=== PATIENT | female | born 1995 | race Two or more races ===

== ENCOUNTER 2020-07-27 14:41 | Outpatient (CLI) | payer MEDICAID ==
--- NOTE | 2020-07-27 18:44 | Ultrasound Report ---
PROCEDURE: OB First Trimester INDICATIONS: pREG TEST OUTSIDE/PRIOR DATING DATA: Last menstrual period (LMP): 05/07/2020. LMP-based estimated date of delivery (RUBIO): 02/11/2021. First dating scan (date and location): Today. Estimated date of delivery (RUBIO) from first dating scan: 02/10/2021. TECHNIQUE: Real-time scanning was performed of the fetus and maternal pelvic organs, with image documentation. COMPARISON: None FINDINGS: Embryo: There is a single living intrauterine with heart rate of 169 bpm. [place] rump length m easures 5.0 cm corresponding to 11 weeks 5 days. No evidence of perigestational hemorrhage. Yolk sac is identified. Measurement variability in dating: +/- 4 weeks by LMP, +/- 7 days by mean sac diameter (use before 6 weeks gestation if crown-rump length not able to be measured), +/- 5 days by crown-rump length (6-12 weeks gestation). Maternal organs: Benign-appearing likely corpus luteal cyst is noted within the left ovary measuring 1.6 x 1.3 x 1.7 cm. IMPRESSION: Single living intrauterine with heart rate of 169 bpm corresponding to 11 weeks 5 day s by crown-rump length. This corresponds to RUBIO of 02/10/2021. Reviewed by: Bill Martinez DO on 07/27/2020 5:43 PM HILARY Approved by: Bill Martinez DO on 07/27/2020 5:43 PM HILARY Station ID: [id number]
== END 2020-07-27 14:42 | disposition home or self-care (01) ==
LOC: DI 14:41
DX: Z32.01 Encounter for pregnancy test, result positive (principal)

== ENCOUNTER 2020-07-28 11:22 | Outpatient (CLI) | payer MEDICAID ==
[2020-07-28 11:55] LABS: BASOPHILS % (AUTO) 0.2 %; EOSINOPHILS # (AUTO) 0.1 10^3/uL (0.0-0.7); EOSINOPHILS % (AUTO) 1.3 %; HCT - HEMATOCRIT 37.7 % (37.0-47.0); HGB - HEMOGLOBIN 12.4 g/dL (12.0-16.0); LYMPHOCYTES # (AUTO) 3.2 10^3/uL (1.5-3.5); LYMPHOCYTES % (AUTO) 30.2 %; MEAN CORPUSCULAR HEMOGLOBIN 26.8 pg (27.0-31.0); MEAN CORPUSCULAR HGB CONC 32.9 g/dL (32.0-36.0); MEAN CORPUSCULAR VOLUME 81.4 fL (81.0-99.0); MEAN PLATELET VOLUME 8.7 fL (7.9-10.8); MONOCYTES # (AUTO) 1.1 10^3/uL (0.0-1.0); MONOCYTES % (AUTO) 10.3 %; NEUTROPHILS % (AUTO) 56.9 %; PLT - PLATELET COUNT 253 10^3/uL (130-450); RED BLOOD COUNT 4.63 10^6/uL (4.20-5.40); RED CELL DISTRIBUTION WIDTH 13.9 % (12.0-15.0); WHITE BLOOD COUNT 10.5 x10^3/uL (4.8-10.8)
[2020-07-29 12:46] LABS: HEPATITIS B SURFACE ANTIGEN NON-REACTIVE (NON-REACTIVE); HEPATITIS C ANTIBODY NON-REACTIVE (NON-REACTIVE)
[2020-07-29 15:06] LABS: HIV AG/AB 4TH GEN NON-REACTIVE (NON-REACTIVE)
== END 2020-07-28 11:23 | disposition home or self-care (01) ==
LOC: LAB 11:22
PROVIDERS: ATTEND Obstetrics & Gynecology
DX: Z32.01 Encounter for pregnancy test, result positive (principal)
CPT/HCPCS: 36415; 85025; 86592; 86762; 86787; 86803; 86850; 86900; 86901; 87340; 87389

== ENCOUNTER 2020-08-04 08:00 | Outpatient (CLI) | payer MEDICAID ==
[2020-08-04 15:56] LABS: MUDS CUTOFF CONCENTRATIONS CUTOFF CONC BELOW:
[2020-08-04 16:02] LABS: BILIRUBIN,URINE NEGATIVE (NEGATIVE); GLUCOSE, URINE (UA) NEGATIVE (NEGATIVE); KETONES,URINE (UA) NEGATIVE (NEGATIVE); LEUKOCYTE ESTERASE, URINE SMALL (NEGATIVE); NITRITE,URINE NEGATIVE (NEGATIVE); OCCULT BLOOD,URINE NEGATIVE (NEGATIVE); PROTEIN,URINE NEGATIVE (NEGATIVE); UROBILINOGEN,URINE 0.2 (NORMAL) E.U./dL (NORMAL)
[2020-08-04 16:12] LABS: BACTERIA,URINE Many /HPF (None Seen); CLARITY,URINE CLOUDY (CLEAR); RBC,URINE 0-5 /HPF (0-5); SQUAMOUS EPITHELIAL CELL,UR MOD Squamous (<= Few)
[2020-08-04 16:13] LABS: AMORPHOUS SEDIMENT,UR Few /LPF
[2020-08-04 16:18] LABS: AMPHETAMINE SCREEN,URINE NEGATIVE (NEGATIVE); BARBITURATE SCREEN,UR NEGATIVE (NEGATIVE); BENZODIAZEPINES SCREEN, URINE NEGATIVE (NEGATIVE); COCAINE SCREEN URINE NEGATIVE (NEGATIVE); METHADONE SCREEN, URINE NEGATIVE (NEGATIVE); METHAMPHETAMINES SCREEN, URINE NEGATIVE (NEGATIVE); OPIATE SCREEN, URINE NEGATIVE (NEGATIVE); OXYCODONE SCREEN, URINE NEGATIVE (NEGATIVE); PROPOXYPHENE SCREEN, URINE NEGATIVE (NEGATIVE); THC CANNABINOID SCREEN, URINE NEGATIVE (NEGATIVE); TRICYCLIC ANTIDEPRESSANT,URINE NEGATIVE (NEGATIVE)
== END 2020-08-04 23:59 | disposition home or self-care (01) ==
LOC: LAB.WC 08:00
PROVIDERS: ATTEND Obstetrics & Gynecology
DX: Z36.89 Encounter for other specified antenatal screening (principal)
CPT/HCPCS: 80306; 81001; 87077; 87086; 87181

== ENCOUNTER 2020-09-01 09:16 | Outpatient (CLI) | payer MEDICAID ==
--- NOTE | 2020-09-01 17:28 | Ultrasound Report ---
PROCEDURE: OB 14+ Weeks INDICATIONS: SUPERVISION OF NORMAL OUTSIDE/PRIOR DATING DATA: Last menstrual period (LMP): 05/07/2020. LMP-based estimated date of delivery (RUBIO): 02/11/2021. First dating scan (date and location): 07/27/2020. Estimated date of delivery (RUBIO) from first dating scan: 02/10/2021. The below data below was generated using the ultrasound RUBIO of 02/10/2021 TECHNIQUE: Real-time scanning was performed of the fetus, with image documentation and biometric measurements. Endovaginal scanning: Not performed COMPARISON: 07/27/2020 FINDINGS: General: A single living intrauterine gestation is present. Presentation: Variable Placenta: Placental position is anterior, without previa. Amniotic fluid index: Subjectively normal. heart rate: 152 beats per minute. Maternal cervical canal: 4.4 cm long; normal length is 2.5 cm or more. biometrics: Biparietal diameter: 3.68 cm, 17 weeks 2 days Head circumference: 13.63 cm, 17 weeks 1 day Abdominal circumference: 10.79 cm, 16 weeks 5 days Femur length: 2.44 cm, 17 weeks 3 days Estimated gestational age from initial scan: 16 weeks 6 days Composite gestational age from present scan: 17 weeks 1 day Estimated weight and percentile: 178 g, 55th percentile Measurement variability for biometric dating: +/- 10 days from 12-20 weeks gestation, +/- 2 weeks fro m 20-30 weeks gestation, +/- 3 weeks for 30 weeks gestation or later. No abnormality identified. Left corpus luteum measuring 2.2 cm. IMPRESSION: 1. [place] living intrauterine at 17 weeks 1 day based on today's ultrasound. There is ex pected interval growth. 2. Normal placenta. Subjectively normal amniotic fluid. Recommend follow-up OB ultrasound for anatomic survey. Reviewed by: Vishal Law MD on 09/01/2020 5:27 PM PDT Approved by: Vishal Law MD on 09/01/2020 5:27 PM PDT Station ID: [id number]
== END 2020-09-01 09:17 | disposition home or self-care (01) ==
LOC: DI 09:16
PROVIDERS: ATTEND Obstetrics & Gynecology
DX: Z32.01 Encounter for pregnancy test, result positive (principal)

== ENCOUNTER 2020-10-15 21:39 | Outpatient (CLI) | payer MEDICAID ==
--- NOTE | 2020-10-16 17:06 | Ultrasound Report ---
PROCEDURE: OB Detailed Eval INDICATIONS: SUPERVISION OF OUTSIDE/PRIOR DATING DATA: Last menstrual period (LMP): 05/07/2020. LMP-based estimated date of delivery (RUBIO): 02/11/2021. First dating scan (date and location): 07/27/2020. Estimated date of delivery (RUBIO) from first dating scan: 02/10/2021. TECHNIQUE: Real-time scanning was performed of the fetus, with image documentation and biometric measurements. Endovaginal scanning: No COMPARISON: Prior OB ultrasound dated 09/01/2020 FINDINGS: General: A single living intrauterine gestation is present. Presentation: Variable Placenta: Placental position is anterior, without previa. Amniotic fluid index: 16.9 cm, normal for gestational age. heart rate: 150 beats per minute. Maternal cervical canal: 5.4 cm long; normal length is 2.5 cm or more. biometrics: Biparietal diameter: 23 weeks 3 days Head circumference: 23 weeks 3 days Abdominal circumference: 23 weeks 5 days Femur length: 22 weeks 2 days Estimated gestational age from initial scan: 23 weeks 1 day Composite gestational age from present scan: 22 weeks 6 days Estimated weight and percentile: 564 g, 41st percentile Measurement variability in biometric dating: +/- 10 days from 12-20 weeks gestation, +/- 2 weeks from 20-30 weeks gestation, +/- 3 weeks at 30 weeks gestation or later. Anatomic survey: Neuro: Ventricles are normal at less than 10 mm. Cisterna magna is normal at 3-11 mm. Cerebellum i s normal in size and morphology. Nuchal skin fold: Normal at less than 6 mm between 14 and 20 weeks gestational age. Face: Nose and lips, facial profile are normal. Spine: Suboptimally visualized. Heart: 4-chambered heart is resident and the cardiac flow tracts are suboptimally visualized. Diaphragm: Diaphragm is intact. Stomach: Left-sided stomach is present. Kidneys: No hydronephrosis. Normal is less than 5 mm in 2nd trimester, less than 7 mm in 3rd trimester. Cord: 3 vessel cord has orthotopic insertion. Bladder: Normal in size. Extremities: All 4 extremities are visualized. IMPRESSION: 1. Single living IUP redemonstrated and interval growth is normal. 2. spine and cardiac outflow tracts not well visualized; otherwise normal anatomy. Follow -up recommended. Reviewed by: JOE Pinto on 10/16/2020 5:04 PM PDT Approved by: Karly Chávez MD on 10/16/2020 5:04 PM PDT Station ID: [id number]
== END 2020-10-15 21:40 | disposition home or self-care (01) ==
LOC: DI 21:39
PROVIDERS: ATTEND Obstetrics & Gynecology
DX: Z34.00 Encounter for supervision of normal first pregnancy, unspecified trimester (principal); Z36.89 Encounter for other specified antenatal screening

== ENCOUNTER 2020-10-30 20:04 | Outpatient (CLI) | payer MEDICAID ==
--- NOTE | 2020-10-31 16:59 | Ultrasound Report ---
PROCEDURE: OB F/U or Repeat INDICATIONS: SUPERVISION OF OUTSIDE/PRIOR DATING DATA: Last menstrual period (LMP): 05/07/2020. LMP-based estimated date of delivery (RUBIO): 02/11/2021. First dating scan (date and location): 07/27/2020. Estimated date of delivery (RUBIO) from first dating scan: 02/10/2021. The below data below was generated using the above RUBIO of 02/10/2021 TECHNIQUE: Real-time scanning was performed of the fetus, with image documentation and biometric measurements. Endovaginal scanning: Not needed. COMPARISON: All prior OB ultrasound studies for this . FINDINGS: General: A single living intrauterine gestation is present. Presentation: Breech Placenta: Placental position is anterior, without previa. Amniotic fluid index: 18.4 cm, normal for gestational age. heart rate: 150 beats per minute. Maternal cervical canal: 4.9 cm long; normal length is 2.5 cm or more. biometrics: Estimated gestational age from initial scan: 25 weeks 2 days. Other: Completion of the anatomic survey which has not allowed adequate visualization of the sp ine and outflow tracts prior anatomic evaluation. The current study allows clear visualization of the se structures and they are considered normal. IMPRESSION: Successful completion of the anatomic survey. Delivery date is projected to be tered on 02/10/2021. Reviewed by: Minh Mraadiaga MD on 10/31/2020 4:58 PM PDT Approved by: Minh Maradiaga MD on 10/31/2020 4:58 PM PDT Station ID: [id number]
== END 2020-10-30 20:05 | disposition home or self-care (01) ==
LOC: DI 20:04
PROVIDERS: ATTEND Obstetrics & Gynecology
DX: Z34.00 Encounter for supervision of normal first pregnancy, unspecified trimester (principal)

== ENCOUNTER 2020-11-28 15:33 | Outpatient (CLI) | payer MEDICAID ==
[2020-11-28 16:17] VITALS: BP 131/77
--- NOTE | 2020-11-28 16:40 | PROCEDURE REPORT ---
- HPI Diagnosis/Indication for NST: Other (Patient had significant groin pain at work and presented to ED) Vital Signs Temperature 98.3 F 11/28/20 16:16 Heart Rate 99 11/28/20 16:16 Respiratory Rate 18 11/28/20 16:16 Blood Pressure 131/77 H 11/28/20 16:16 O2 Saturation 99 11/28/20 16:16 Temperature 98.3 F 11/28/20 16:16 Heart Rate 99 11/28/20 16:16 Respiratory Rate 18 11/28/20 16:16 Blood Pressure 131/77 H 11/28/20 16:16 O2 Saturation 99 11/28/20 16:16 - NST Procedure 25yo 29 weeks presented to ED with pain in left groin. NST: Baseline 155 with moderate variability. Accelerations 10X10 present. No decelerations. No contractions. Reactive NST and Category I monitor strip.
--- NOTE | 2020-11-28 16:43 | PROVIDER PROGRESS NOTE ---
- HPI Chief Complaint: Other (Patient had strong left groin pain at work.) Current : Vital Signs Temperature 98.3 F 11/28/20 16:16 Heart Rate 99 11/28/20 16:16 Respiratory Rate 18 11/28/20 16:16 Blood Pressure 131/77 H 11/28/20 16:16 O2 Saturation 99 11/28/20 16:16 Temperature 98.3 F 11/28/20 16:16 Heart Rate 99 11/28/20 16:16 Respiratory Rate 18 11/28/20 16:16 Blood Pressure 131/77 H 11/28/20 16:16 O2 Saturation 99 11/28/20 16:16 25yo at 29 3/7 with left inguinal groin pain at work. Patient states it was very strong, much better now. Patient reports good movement. Patient denies SROM or vaginal bleeding or contractions. - Exam O- General: Patient is lying in bed in no acute distress. Chest: clear to auscultation. No rales, wheezes, or rhonchi. Heart: RRR without murmur or gallop. Abdomen: Soft, non-tender to palpation. Inguinal area did not have any bulging with Valsalva. Not tender to palpation. Extremities: No edema, no calf tenderness. Monitor: Baseline 155 with moderate variablity and Accelerations 10X10 present. No decelerations. No contractions. Reactive NST, Category I monitor strip. Discussed that fetus was breech in October. Patient feels kicking in RUQ. heart tones in LLQ. Discussed need for support belt to support under the abdomen and take some pressure off her low back. A-IUP 29 3/7 with Left Groin pain. P- support belt. Left with legs not back. Keep her appointment next week on the with Dr. Jones.
== END 2020-11-28 17:00 | disposition home or self-care (01) ==
LOC: WFO 15:33 → FBP 15:55 → WFO 17:00
PROVIDERS: ATTEND Obstetrics & Gynecology
DX: O99.891 Other specified diseases and conditions complicating pregnancy (principal); R10.814 Left lower quadrant abdominal tenderness; Z3A.29 29 weeks gestation of pregnancy
CPT/HCPCS: 59025; 99211; 99213

== ENCOUNTER 2020-12-01 08:41 | Outpatient (CLI) | payer MEDICAID | END 2020-12-01 08:42 | disposition home or self-care (01) | LOC: LAB 08:41 | PROVIDERS: ATTEND Obstetrics & Gynecology | DX: Z34.00 Encounter for supervision of normal first pregnancy, unspecified trimester (principal); Z36.89 Encounter for other specified antenatal screening; Z53.9 Procedure and treatment not carried out, unspecified reason ==

== ENCOUNTER 2020-12-04 18:45 | Outpatient (CLI) | payer MEDICAID ==
[2020-12-04 20:13] LABS: HCT - HEMATOCRIT 27.7 % (37.0-47.0); HGB - HEMOGLOBIN 8.5 g/dL (12.0-16.0); MEAN CORPUSCULAR HEMOGLOBIN 23.7 pg (27.0-31.0); MEAN CORPUSCULAR HGB CONC 30.7 g/dL (32.0-36.0); MEAN CORPUSCULAR VOLUME 77.4 fL (81.0-99.0); RED BLOOD COUNT 3.58 10^6/uL (4.20-5.40); RED CELL DISTRIBUTION WIDTH 44.3 % (12.0-15.0); WHITE BLOOD COUNT 11.9 x10^3/uL (4.8-10.8)
== END 2020-12-04 18:46 | disposition home or self-care (01) ==
LOC: LAB 18:45
PROVIDERS: ATTEND Obstetrics & Gynecology
DX: Z34.00 Encounter for supervision of normal first pregnancy, unspecified trimester (principal); Z36.89 Encounter for other specified antenatal screening
CPT/HCPCS: 36415; 82950; 85027

== ENCOUNTER 2020-12-15 09:40 | Outpatient (CLI) | payer MEDICAID ==
[2020-12-15] MEDS ORDERED: FERRIC GLUCONATE 125 MG in SODIUM CHLORIDE 0.9% 100ML 100 ML IV ONE (10:45)
[2020-12-15 13:17] VITALS: BP 121/76
== END 2020-12-15 12:05 | disposition home or self-care (01) ==
LOC: WFO 09:40 → FBP 09:42 → WFO 12:05
PROVIDERS: ATTEND Obstetrics & Gynecology
DX: O99.019 Anemia complicating pregnancy, unspecified trimester (principal); Z3A.00 Weeks of gestation of pregnancy not specified
CPT/HCPCS: 96365; J2916

== ENCOUNTER 2020-12-29 09:56 | Outpatient (CLI) | payer MEDICAID ==
[2020-12-29 10:21] LABS: HCT - HEMATOCRIT 36.4 % (37.0-47.0); MEAN CORPUSCULAR HEMOGLOBIN 25.4 pg (27.0-31.0); MEAN CORPUSCULAR HGB CONC 30.2 g/dL (32.0-36.0); MEAN CORPUSCULAR VOLUME 84.1 fL (81.0-99.0); MEAN PLATELET VOLUME 9.5 fL (7.9-10.8); RED BLOOD COUNT 4.33 10^6/uL (4.20-5.40); RED CELL DISTRIBUTION WIDTH 24.7 % (12.0-15.0); WHITE BLOOD COUNT 10.9 x10^3/uL (4.8-10.8)
== END 2020-12-29 09:57 | disposition home or self-care (01) ==
LOC: LAB 09:56
PROVIDERS: ATTEND Obstetrics & Gynecology
DX: O99.019 Anemia complicating pregnancy, unspecified trimester (principal); O99.891 Other specified diseases and conditions complicating pregnancy; N90.89 Other specified noninflammatory disorders of vulva and perineum
CPT/HCPCS: 36415; 85027; 87529

== ENCOUNTER 2021-01-21 08:00 | Outpatient (CLI) | payer MEDICAID | END 2021-01-21 23:59 | disposition home or self-care (01) | LOC: LAB 08:00 | PROVIDERS: ATTEND Obstetrics & Gynecology | DX: Z34.00 Encounter for supervision of normal first pregnancy, unspecified trimester (principal); Z36.85 Encounter for antenatal screening for Streptococcus B | CPT/HCPCS: 87797 ==

== ENCOUNTER 2021-02-02 11:24 | Outpatient (CLI) | payer MEDICAID ==
[2021-02-02 12:37] LABS: BASOPHILS # (AUTO) 0.1 10^3/uL (0.0-0.1); BASOPHILS % (AUTO) 0.6 %; EOSINOPHILS # (AUTO) 0.1 10^3/uL (0.0-0.7); EOSINOPHILS % (AUTO) 1.2 %; HCT - HEMATOCRIT 39.1 % (37.0-47.0); HGB - HEMOGLOBIN 12.8 g/dL (12.0-16.0); LYMPHOCYTES # (AUTO) 2.7 10^3/uL (1.5-3.5); LYMPHOCYTES % (AUTO) 28.6 %; MEAN CORPUSCULAR HEMOGLOBIN 27.6 pg (27.0-31.0); MEAN CORPUSCULAR HGB CONC 32.7 g/dL (32.0-36.0); MEAN CORPUSCULAR VOLUME 84.4 fL (81.0-99.0); MEAN PLATELET VOLUME 9.9 fL (7.9-10.8); MONOCYTES % (AUTO) 10.8 %; NEUTROPHILS # (AUTO) 5.2 10^3/uL (1.5-6.6); NEUTROPHILS % (AUTO) 55.2 %; PLT - PLATELET COUNT 203 10^3/uL (130-450); RED BLOOD COUNT 4.63 10^6/uL (4.20-5.40); RED CELL DISTRIBUTION WIDTH 24.5 % (12.0-15.0); WHITE BLOOD COUNT 9.4 x10^3/uL (4.8-10.8)
[2021-02-02 12:50] LABS: URIC ACID 5.2 mg/dL (2.6-7.2)
[2021-02-02 13:04] LABS: CREATININE,URINE 122.5 mg/dL; PROTEIN/CREATININE RATIO,URINE 0.4 (<=0.2)
[2021-02-02 13:13] LABS: PLATELET ESTIMATE, MANUAL NORMAL (130-450,000) (NORMAL); PLATELET MORPHOLOGY NORMAL APPEARANCE (NORMAL); SLIDE REVIEW? Indicated
--- NOTE | 2021-02-02 13:14 | PROVIDER PROGRESS NOTE ---
- HPI Chief Complaint: Hypertension/PIH Current : Vital Signs Temperature 98.1 F 02/02/21 11:37 Heart Rate 84 02/02/21 11:37 Respiratory Rate 18 02/02/21 11:37 Blood Pressure 143/85 H 02/02/21 11:37 Temperature 98.1 F 02/02/21 11:37 Heart Rate 73 02/02/21 12:46 Respiratory Rate 18 02/02/21 11:37 Blood Pressure 126/80 02/02/21 12:46 O2 Saturation - Exam 25yo at 38 5/7 weeks presented from clinic due to 2 elevated diastolic blood pressures in clinic. Patient is currently without headache, right upper quadrant pain or any symptoms of elevated blood pressure. Patient reports good movement. Patient denies feeling contractions. Patient denies SROM or vaginal bleeding. O- Initial blood pressure was 143/85, second one is 126/80. General: Patient was lying on left side and was tearful because she was worried and talking to her mother. Chest: Clear to auscultation. Good breath sounds in all miller. Heart: RRR without murmur or gallop. Abdomen: Soft, non-tender to palpation, Gravid. Extremities: No pitting pedal or pre-tibial edema noted. Neuro: Right patellar DTR +2/+4 NST: Baseline 140 with moderate variability and 15X15 Accelerations are present. Irregular contractions are present, patient does not feel them. No decelerations. Reactive NST, Category I monitor strip. All labs are within normal range except urine Protein/Creatinine Ratio. It is 0.4mg/dl. Patient had blood pressure monitored for 4 hours and did not have another systolic greater than 140mmHg and did not have a diastolic greater than 90mmHg. Discussed the abnormal urine protein/Creatinine ratio and the need to repeat it tomorrow. Patient is to return tomorrow for Blood pressure check, NST and Urine protein/Creatinine ratio. A--IUP 38 5/7 Elevated diastolic blood pressure in clinic. Blood pressures monitored for 4 hours and patient has not had a second blood pressure that was above the 140/90 range in that time period. Elevated Urine protein/creatinine ratio. P- Discharge to home. Labor Precautions. Return tomorrow for NST, Urine protein/creatinine ratio and Blood pressure monitoring. - Procedures NST Procedure: NST Procedure Stop Time 12:00
[2021-02-02 13:47] LABS: ALBUMIN 3.3 g/dL (3.2-5.5); ALBUMIN/GLOBULIN RATIO 0.9 (1.0-2.2); BILIRUBIN,TOTAL 0.8 mg/dL (0.2-1.0); CALCIUM 9.7 mg/dL (8.5-10.3); CREATININE 0.5 mg/dL (0.4-1.0); POTASSIUM 4.1 mmol/L (3.5-5.0)
[2021-02-02 14:14] LABS: BILIRUBIN,URINE NEGATIVE (NEGATIVE); GLUCOSE, URINE (UA) NEGATIVE (NEGATIVE); KETONES,URINE (UA) NEGATIVE (NEGATIVE); LEUKOCYTE ESTERASE, URINE TRACE (NEGATIVE); NITRITE,URINE NEGATIVE (NEGATIVE); OCCULT BLOOD,URINE NEGATIVE (NEGATIVE); PH,URINE 6.5 PH (5.0-7.5); PROTEIN,URINE TRACE mg/dL (NEGATIVE); UROBILINOGEN,URINE 0.2 (NORMAL) E.U./dL (NORMAL)
[2021-02-02 14:16] LABS: CLARITY,URINE CLOUDY (CLEAR)
[2021-02-02 14:27] LABS: BACTERIA,URINE Many /HPF (None Seen); RBC,URINE 0-5 /HPF (0-5); SQUAMOUS EPITHELIAL CELL,UR MOD Squamous (<= Few)
[2021-02-02 18:23] VITALS: BP 125/72
== END 2021-02-02 16:05 | disposition home or self-care (01) ==
LOC: WFO 11:24 → FBP 11:26 → WFO 16:05
PROVIDERS: ATTEND Obstetrics & Gynecology
DX: O14.93 Unspecified pre-eclampsia, third trimester (principal); Z3A.38 38 weeks gestation of pregnancy
CPT/HCPCS: 36415; 59025; 80053; 81001; 82570; 83615; 84156; 84450; 84550; 85025; 87086; 99215

== ENCOUNTER 2021-02-03 15:13 | Outpatient (CLI) | payer MEDICAID ==
[2021-02-03 16:04] LABS: BILIRUBIN,URINE NEGATIVE (NEGATIVE); GLUCOSE, URINE (UA) NEGATIVE (NEGATIVE); KETONES,URINE (UA) NEGATIVE (NEGATIVE); LEUKOCYTE ESTERASE, URINE TRACE (NEGATIVE); NITRITE,URINE POSITIVE (NEGATIVE); OCCULT BLOOD,URINE NEGATIVE (NEGATIVE); PH,URINE 6.5 PH (5.0-7.5); PROTEIN,URINE NEGATIVE (NEGATIVE); UROBILINOGEN,URINE 0.2 (NORMAL) E.U./dL (NORMAL)
[2021-02-03 16:07] LABS: CLARITY,URINE HAZY (CLEAR)
[2021-02-03 16:17] LABS: CREATININE,URINE 60.2 mg/dL; PROTEIN/CREATININE RATIO,URINE 0.2 (<=0.2)
[2021-02-03 16:19] LABS: RBC,URINE 0-5 /HPF (0-5); SQUAMOUS EPITHELIAL CELL,UR FEW Squamous (<= Few)
[2021-02-03 16:20] LABS: BACTERIA,URINE Moderate /HPF (None Seen)
--- NOTE | 2021-02-03 18:33 | PROVIDER PROGRESS NOTE ---
- HPI Chief Complaint: Other (Blood pressure check) Current : Current EDU 02/11/21 Gestation 38 Weeks and 6 Days 1 Para 0 Vital Signs Heart Rate 99 02/03/21 15:27 Respiratory Rate 19 02/03/21 15:27 Blood Pressure 132/81 H 02/03/21 15:27 O2 Saturation 100 02/03/21 15:27 Temperature 98.1 F 02/03/21 15:35 Heart Rate 99 02/03/21 15:27 Respiratory Rate 19 02/03/21 15:27 Blood Pressure 132/81 H 02/03/21 15:27 O2 Saturation 100 02/03/21 15:27 - Procedures OB Procedure Performed: NST Diagnosis/Indication for NST: Other (Elevated blood pressure) NST Procedure: NST Procedure Start Date 02/03/21 Start Time 15:51 Stop Time 16:48 Vibroacoustic Stimulation Used Yes Patient States Movement Yes Service Date of procedure: 02/03/21 Findings: NST reactive and reassuring. Moderate variability. Positive accelerations. No decelerations. Baseline 140 bpm, intermittent Contractions - Plan Plan: 25-year-old G1 at 38 weeks 6 days who presents for follow-up of elevated blood pressures in clinic. #1 Elevated blood pressures- Patient with elevated blood pressure in clinic. Status post prolonged monitoring yesterday with no elevated blood pressures 4 hours apart. Blood pressures today within normal limits. Patient remains asymptomatic. Urine protein creatinine ratio 0.2. Preeclampsia labs previously normal Yesterday. BPP 8 out of 8. Recommend follow-up blood pressure check in 48 hours with NST. Stable for discharge with kick count precautions. Labor precautions given and preeclampsia warnings. #2 UTI. Patient incidentally noted to have bacteriuria. Macrobid Rx sent.
--- NOTE | 2021-02-03 18:56 | Ultrasound Report ---
PROCEDURE: OB Biophysical Profile INDICATIONS: Non-reactive NST OUTSIDE/PRIOR DATING DATA: Last menstrual period (LMP): 05/07/2020. LMP-based estimated date of delivery (RUBIO): 02/11/2021. First dating scan (date and location): 07/27/2020. Estimated date of delivery (RUBIO) from first dating scan: 04/12/2020. TECHNIQUE: Real-time scanning was performed of the fetus, with image documentation and biometric lisa surements. Biophysical profile was also obtained. Endovaginal scanning: Not obtained COMPARISON: 10/30/2020 FINDINGS: General: A single living intrauterine gestation is present. Presentation: Vertex Placenta: Placental position is anterior, without previa. Amniotic fluid index: 16 cm, normal for gestational age. heart rate: 138 beats per minute. Maternal cervical canal: 3.1 cm long; normal length is 2.5 cm or more. Estimated gestational age from initial scan: 39 week 0 day Biophysical profile: 8 out of 8 Tone: 2 points. Movement: 2 points. Respiration: 2 points. Largest pocket of fluid: 2 points. , 5.8 cm Umbilical artery Doppler ratios: 2.4, 2.5, 2.9 IMPRESSION: 1. Single live intrauterine consistent with 39 week 0 day gestation. 2. Biophysical profile score 8 out of 8 Reviewed by: Benny Liu MD on 02/03/2021 5:55 PM AKST Approved by: Benny Liu MD on 02/03/2021 5:55 PM AKST Station ID: [id number]
[2021-02-03 19:34] VITALS: BP 137/84
== END 2021-02-03 18:50 | disposition home or self-care (01) ==
LOC: WFO 15:13 → FBP 15:14 → WFO 18:50
PROVIDERS: ATTEND Obstetrics & Gynecology
DX: O26.893 Other specified pregnancy related conditions, third trimester (principal); R03.0 Elevated blood-pressure reading, without diagnosis of hypertension; O28.8 Other abnormal findings on antenatal screening of mother; Z3A.38 38 weeks gestation of pregnancy
CPT/HCPCS: 59025; 80048; 80053; 81001; 82570; 83615; 84156; 84450; 84550; 85025; 87077; 87086; 87181; 99214

== ENCOUNTER 2021-02-05 08:31 | Outpatient (CLI) | payer MEDICAID ==
[2021-02-05 08:47] VITALS: BP 125/81
--- NOTE | 2021-02-05 12:09 | PROCEDURE REPORT ---
- HPI Diagnosis/Indication for NST: Other (Elevated BP in clinic) Current EDU 02/11/21 Gestation 39 Weeks and 1 Days 1 Para 0 Vital Signs Temperature 98.4 F 02/05/21 08:39 Temperature 98.4 F 02/05/21 08:44 Heart Rate 100 02/05/21 08:44 Respiratory Rate 18 02/05/21 08:44 Blood Pressure 125/81 H 02/05/21 08:44 O2 Saturation 100 02/05/21 08:44 - NST Procedure NST Procedure Start Date 02/05/21 Start Time 08:45 Stop Time 09:10 Vibroacoustic Stimulation Used No Patient States Movement Yes - Results and Plan Findings/Impression: heart rate baseline 130 bpm accelerations 15 x 15 decelerations none moderate variability no contractions Plan: Follow-up with OB next week
== END 2021-02-05 09:15 | disposition home or self-care (01) ==
LOC: WFO 08:31 → FBP 08:34 → WFO 09:15
PROVIDERS: ATTEND Obstetrics & Gynecology
DX: O99.891 Other specified diseases and conditions complicating pregnancy (principal)
CPT/HCPCS: 59025

== ENCOUNTER 2021-02-15 04:17 | Outpatient (CLI) | payer MEDICAID ==
[2021-02-15 05:00] VITALS: BP 125/76
--- NOTE | 2021-02-15 12:21 | PROCEDURE REPORT ---
- HPI Diagnosis/Indication for NST: Other (false labor) Current EDU 02/11/21 Gestation 40 Weeks and 4 Days 1 Para 0 Vital Signs Temperature 98.2 F 02/15/21 04:50 Heart Rate 84 02/15/21 04:50 Respiratory Rate 20 02/15/21 04:50 Blood Pressure 125/76 02/15/21 04:50 Temperature 98.2 F 02/15/21 04:50 Heart Rate 84 02/15/21 04:50 Respiratory Rate 20 02/15/21 04:50 Blood Pressure 125/76 02/15/21 04:50 O2 Saturation - NST Procedure NST Procedure Start Time 08:45 Stop Time 09:10 EFM 125 mod artem 15x15 accels no decels TOCO: Q2-6 min - Results and Plan Findings/Impression: 25 yo at 40+4 wga here with contractions SVE 0/60/-3; not supportive of active labor Offered walk of 1-2 hours with re-check; declined and opted to return home Cat I tracing DOS: 02/15/21 NST read 02/15/21 DX: IUP at 40+4 False labor
== END 2021-02-15 06:00 | disposition home or self-care (01) ==
LOC: WFO 04:17 → FBP 04:25 → WFO 06:00
PROVIDERS: ATTEND Obstetrics & Gynecology
DX: O47.1 False labor at or after 37 completed weeks of gestation (principal); O48.0 Post-term pregnancy; Z3A.40 40 weeks gestation of pregnancy
CPT/HCPCS: 59020; 99214

== ENCOUNTER 2021-02-17 14:16 | Inpatient (IN) | payer MEDICAID ==
[2021-02-17] MEDS ORDERED: LIDOCAINE-MPF 1% 30 ML VIAL ID PRN (14:44)
[2021-02-17] MEDS ORDERED: OXYTOCIN 10 UNIT/ML VIAL IM PRN (14:44)
[2021-02-17] MEDS ORDERED: TRANEXAMIC ACID IN NACL 1,000 MG/100 ML BAG IV PRN (14:44)
[2021-02-17] MEDS ORDERED: METHYLERGONOVINE 0.2 MG/ML VIAL IM PRN (14:44)
[2021-02-17] MEDS ORDERED: CARBOPROST TROMETHAMINE 250 MCG/ML AMP IM PRN (14:44)
[2021-02-17] MEDS ORDERED: miSOPROStoL 200 MCG TABLET BC PRN (14:44)
[2021-02-17] MEDS ORDERED: OXYTOCIN/SODIUM CHLORIDE 500 ML IV PRN (14:44)
[2021-02-17 15:29] LABS: BASOPHILS # (AUTO) 0.1 10^3/uL (0.0-0.1); BASOPHILS % (AUTO) 0.5 %; EOSINOPHILS # (AUTO) 0.3 10^3/uL (0.0-0.7); EOSINOPHILS % (AUTO) 2.9 %; HCT - HEMATOCRIT 39.4 % (37.0-47.0); HGB - HEMOGLOBIN 12.9 g/dL (12.0-16.0); LYMPHOCYTES # (AUTO) 2.9 10^3/uL (1.5-3.5); LYMPHOCYTES % (AUTO) 30.2 %; MEAN CORPUSCULAR HEMOGLOBIN 27.9 pg (27.0-31.0); MEAN CORPUSCULAR HGB CONC 32.7 g/dL (32.0-36.0); MEAN CORPUSCULAR VOLUME 85.3 fL (81.0-99.0); MEAN PLATELET VOLUME 10.4 fL (7.9-10.8); MONOCYTES # (AUTO) 1.1 10^3/uL (0.0-1.0); MONOCYTES % (AUTO) 11.6 %; NEUTROPHILS % (AUTO) 53.3 %; PLT - PLATELET COUNT 211 10^3/uL (130-450); RED BLOOD COUNT 4.62 10^6/uL (4.20-5.40); RED CELL DISTRIBUTION WIDTH 23.3 % (12.0-15.0); WHITE BLOOD COUNT 9.5 x10^3/uL (4.8-10.8)
[2021-02-17 15:37] LABS: SLIDE REVIEW? Indicated
[2021-02-17] MEDS: miSOPROStoL 100 MCG TABLET BC SCH ×2 (15:59→20:18)
[2021-02-17 16:17] LABS: PLATELET ESTIMATE, MANUAL NORMAL (130-450,000) (NORMAL); PLATELET MORPHOLOGY RARE GIANT PLATELETS (NORMAL)
[2021-02-17] MEDS ORDERED: SODIUM CHLORIDE FLUSH 0.9% 10 ML SYRINGE IVP SCH (17:00)
[2021-02-17] MEDS ORDERED: ONDANSETRON 4 MG/2 ML VIAL IVP PRN (20:17)
[2021-02-17] MEDS ORDERED: hydrALAZINE INJ 20 MG/ML VIAL IVP PRN ×2 (20:17)
[2021-02-17] MEDS ORDERED: METOCLOPRAMIDE 10 MG/2 ML VIAL IVP PRN (20:17)
[2021-02-17] MEDS ORDERED: NIFEdipine 10 MG CAPSULE PO PRN (20:17)
[2021-02-17] MEDS ORDERED: TERBUTALINE 1 MG/ML VIAL SUBQ PRN (20:17)
[2021-02-17] MEDS ORDERED: LABETALOL 20 MG/4 ML SYRINGE IVP PRN ×3 (20:17)
--- NOTE | 2021-02-17 20:31 | HISTORY & PHYSICAL EXAMINATION ---
Admit History - Visit Reason Visit Reason: Other (induction of labor) - : 1 Parity: 0 Risk/History: positive: None Smoking Status: Never smoker - Mother's Labs Mother's Blood Type: positive: O Mother's RH: positive: Positive GBS: positive: Group B Step Negative Rubella Status: positive: Immune - Other Maternal History Other Maternal History: Patient is a 25 yo at 40+6 wga here for IOL with cervical ripening for post dates . Has had uncomplicated course. Treated for anemia with IV iron with adequate response. Had isolated episode of elevated blood pressures without repeat 4 hours from initial elevated BP. Presents for IOL. Has been having intermittent ctx but no LOF or VB. Endorses FM. PNC: LMP 05/07/20 gives RUBIO 02/11/21 US on 07/27/20 at 11w5d gives RUBIO 02/10/21; cwd FINAL RUBIO:02/11/21 ANEMIA: S/p iron infusion -CBC 36.4 VULVAR LESION: presentation not consistent with folliculitis. Appearance suggestive of glandular inflammation; absent of fluctuance. -HSV PCR sample collected; not readable -Low concern for HSV, likely varicosity. Not painful on 03/31/20 visit. O pos/Rubella immune VZV: immune Genetic testing: Declined testing FAS: WNL except spine and heart not well visualized. EFW 41%. 3VC. Anterior placenta. JOSE R normal. 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 PE: 139/72 98.1 75 18 GEN: NAD HEAD: NCAT EYES: No scleral icterus or conjunctival injection NECK: No cervical LAD or TM CV: RRR RESP: CTAB, normal effort ABD: S&NT/ND PSYCH: appropriate affect NEURO: alert and oriented, normal gait and coordination EXT: WWP VULVA: Normal external female genitalia. Normal Bartholin's, Harvey's, urethra meatus and anus. No inguinal lymphadenopathy. SVE: Closed/long/high/posterior Vertex by BSUS EFM 135 mod artem no accels no decels TOCO: intermittent A/P: 25 yo at 40+6 wga here for IOL for pending post dates Reviewed R/B/A of proceeding with IOL. Written informed consent obtained. IOL: -Cervical ripening with misoprostol 50 mcg BC Q4H for up to 6 doses -Reviewed possible use of jane balloon -Pitocin when favorable -AROM as indicated FWB: vertex, GBS neg, well grown, Cat I tracing -CEFM PAIN: -Epidural as desired -Fentanyl to max of 4 doses and not to be given after 7 cm -Nitrous oxide as desires Oupatient status for cervical ripening Convert to inpatient with AROM/SROM, start of pitocin, active labor, or epidural Meds/Allgy - Home Medications Home Medications: Ambulatory Orders Medication Instructions Recorded Confirmed Nitrofurantoin [Macrobid] 100 mg PO BID #14 tab 02/03/21 - Allergies Allergies/Adverse Reactions: Allergies Allergy/AdvReac Type Severity Reaction Status Date / Time No Known Drug Allergies Allergy Verified 02/02/21 13:12 Physical - Abdominal Exam Vital Signs: Temp Pulse Resp BP Pulse Ox 98 F 87 16 136/84 H 100 02/17/21 20:20 02/17/21 20:20 02/17/21 20:20 02/17/21 20:20 02/17/21 20:20
[2021-02-17] MEDS: LACTATED RINGERS 1,000 ML IV SCH (23:36)
[2021-02-17] MEDS: ACETAMINOPHEN 325 MG TABLET PO SCH (23:45)
[2021-02-18] MEDS: fentaNYL 100 MCG/2 ML VIAL IVP PRN ×4 (04:06→19:57)
[2021-02-18] MEDS: SODIUM CHLORIDE FLUSH 0.9% 10 ML SYRINGE IVP PRN ×2 (04:07→05:47)
[2021-02-18] MEDS: LACTATED RINGERS 1,000 ML IV SCH ×2 (09:27→19:37)
[2021-02-18] MEDS: ACETAMINOPHEN 325 MG TABLET PO SCH ×3 (09:38→22:26)
--- NOTE | 2021-02-18 10:59 | PROVIDER PROGRESS NOTE ---
Labor Progress Note - Uterine Monitoring Uterine Monitoring Mode: positive: External toco Contraction Frequency (min/apart): 1-6 Contraction Intensity: positive: Mild to moderate Uterine Resting Tone: positive: Soft - Monitoring Monitor Mode: positive: External ultrasound Heart Rate Baseline: 130 Heart Rate Variability: positive: Moderate (6-25 bmp) Accelerations: positive: Present, 15x15 Decelerations: positive: None Strip Review: positive: Category I - Vaginal Exam Dilation (in cm): 1 Effacement (%): 100 Station: -3 Cervical Position: Posterior - Labor Progress Note Labor Progress Note/Additional Text: Patient received two doses of fentanyl due to pain but would like to avoid epidural, however available if she desires. Unable to place additional misoprostol since last night due to contraction frequency. Discussed oxytocin vs cervical balloon and patient agrees to placement. CRB placed with uterine ballon inflated to 80 ml and vaginal balloon with 40ml. Patient uncomfortable but tolerated well. Will consider oxytocin after patient adapts to balloon.
[2021-02-18] MEDS ORDERED: OXYTOCIN/SODIUM CHLORIDE 500 ML IV SCH (13:00)
--- NOTE | 2021-02-18 22:25 | PROVIDER PROGRESS NOTE ---
Labor Progress Note - Uterine Monitoring Uterine Monitoring Mode: positive: External toco Contraction Frequency (min/apart): 1-3 Contraction Intensity: positive: Strong Uterine Resting Tone: positive: Soft - Monitoring Monitor Mode: positive: External ultrasound Heart Rate Baseline: 150 Heart Rate Variability: positive: Moderate (6-25 bmp) Accelerations: positive: Present, 15x15 Decelerations: positive: Early (rare) Strip Review: positive: Category I - Vaginal Exam Dilation (in cm): 7 Effacement (%): 100 Station: -3 Cervical Position: Midposition - Labor Progress Note Labor Progress Note/Additional Text: Patient has had minimal change for approximately 5 hours while jorge 1-3 minutes. head is still very belottable, and it would be unsafe to perform amniotomy. She is jorge strongly and is in significant pain to the level of vomiting. Has had four doses of fentanyl but wants to avoid an epidural. Discussed waiting two more hours to assess cervical change, but that we are likely heading towards a section as we are not progressing. No fever or chills. Category 1 tracing. Patient says she wants to wait two hours before getting an epidural. Discussed that we will be assessing need for at that point and may get a spinal, but will wait for recheck for decision.
[2021-02-18] MEDS ORDERED: ROPIVACAINE 0.2% 200 MG/100 ML BAG EP ONE (23:26)
[2021-02-18] MEDS ORDERED: ROPIVACAINE 0.2% 200 MG/100 ML BAG EP PRN (23:51)
[2021-02-18] MEDS ORDERED: diphenhydrAMINE INJ 50 MG/ML VIAL IVP PRN (23:51)
[2021-02-18] MEDS ORDERED: METOCLOPRAMIDE 10 MG/2 ML VIAL IVP PRN (23:51)
[2021-02-18] MEDS ORDERED: ePHEDrine 50 MG/ML VIAL IVP PRN (23:51)
[2021-02-18] MEDS ORDERED: ONDANSETRON 4 MG/2 ML VIAL IVP PRN (23:51)
[2021-02-18] MEDS ORDERED: NALOXONE 0.4 MG/ML VIAL IVP PRN (23:51)
[2021-02-18] MEDS ORDERED: NALBUPHINE 10 MG/ML AMP IVP PRN (23:51)
--- NOTE | 2021-02-18 23:51 | ANESTHESIA ---
Pre-Anesthesia VS, & Labs - Diagnosis active labor - Procedure labor epidural Vital Signs: Temp Pulse Resp BP Pulse Ox 36.6 C 87 16 136/84 H 100 02/17/21 20:20 02/17/21 20:20 02/17/21 20:20 02/17/21 20:20 02/17/21 20:20 Height: 5 ft 3 in Weight (kg): 88.904 kg Body Mass Index: 34.7 BMI Classification: Obese - NPO >8 hours - Is Patient ?: Yes - Lab Results Current Lab Results: Laboratory Tests 02/17/21 15:51: Blood Type O POSITIVE, Antibody Screen NEGATIVE 02/17/21 15:12: WBC 9.5, RBC 4.62, Hgb 12.9, Hct 39.4, MCV 85.3, MCH 27.9, MCHC 32.7, RDW 23.3 H, Plt Count 211, MPV 10.4, Neut # (Auto) 5.0, Lymph # (Auto) 2.9, Webster # (Auto) 1.1 H, Eos # (Auto) 0.3, Baso # (Auto) 0.1, Absolute Nucleated RBC 0.00, Nucleated RBC % 0.0, Manual Slide Review Indicated, Platelet Estimate NORMAL (130-450,000), Platelet Morphology RARE GIANT PLATELETS, RBC Morph Micro Appear 2+ POIKILOCYTOSIS Fish Bones: 02/17/21 15:12 Home Medications and Allergies Active Medications Acetaminophen (Acetaminophen 325 Mg Tablet) 650 mg PO Q6H LON Last Admin: 02/18/21 22:26 Dose: 650 mg Documented by: Carboprost Tromethamine (Carboprost Tromethamine 250 Mcg/Ml Amp) 250 mcg IM Q15M PRN PRN Reason: Step 4: Hemorrhage protocol Stop: 02/22/21 14:47 Hydralazine HCl (Hydralazine Inj 20 Mg/Ml Vial) 5 - 20 mg IVP Q20M PRN; Protocol PRN Reason: SBP >160 or DBP >110 Hydralazine HCl (Hydralazine Inj 20 Mg/Ml Vial) 10 mg IVP .ONCE PRN; Protocol PRN Reason: Step 9 of Labetalol protocol Stop: 02/22/21 20:23 Oxytocin/Sodium Chloride (Pitocin/Sodium Chloride) 500 mls @ 999 mls/hr IV PRN PRN; Protocol PRN Reason: POST- HEMORR PREVENTION Stop: 02/22/21 14:47 Tranexamic Acid (Tranexamic 1,000 Mg/100ml-Nacl) 1,000 mg in 100 mls @ 600 mls/hr IV .ONCE PRN PRN Reason: EBL >1200mL and within 3hr Stop: 02/22/21 14:47 Lactated Ringer's (Lr) 1,000 mls @ 100 mls/hr IV .Q10H LON Last Admin: 02/18/21 19:37 Dose: 100 mls/hr Documented by: Oxytocin/Sodium Chloride (Pitocin/Sodium Chloride) 500 mls @ 2 mls/hr IV TITR LON; Protocol Last Admin: 02/18/21 13:20 Dose: 2 milliunit/min, 2 mls/hr Documented by: Labetalol HCl (Labetalol 20 Mg/4 Ml Syringe) 20 - 80 mg IVP Q10M PRN; Protocol PRN Reason: SBP >160 or DBP >110 Labetalol HCl (Labetalol 20 Mg/4 Ml Syringe) 20 mg IVP .ONCE PRN; Protocol PRN Reason: Step 9 of nifedipine protocol Stop: 02/22/21 20:23 Labetalol HCl (Labetalol 20 Mg/4 Ml Syringe) 40 mg IVP .ONCE PRN; Protocol PRN Reason: Step 9 of hydrALAZine protocol Stop: 02/22/21 20:23 Lidocaine HCl (Lidocaine-Mpf 1% 30 Ml Vial) 30 ml ID .ONCE PRN PRN Reason: PERINEAL REPAIR Stop: 02/22/21 14:47 Methylergonovine Maleate (Methylergonovine 0.2 Mg/Ml Vial) 0.2 mg IM .ONCE PRN PRN Reason: Step 2: Hemorrhage protocol Stop: 02/22/21 14:47 Metoclopramide HCl (Metoclopramide 10 Mg/2 Ml Vial) 5 mg IVP Q6H PRN PRN Reason: Nausea / Vomiting Misoprostol (Misoprostol 200 Mcg Tablet) 800 mcg BC .ONCE PRN PRN Reason: Step 3: Hemorrhage protocol Stop: 02/22/21 14:47 Misoprostol (Misoprostol 100 Mcg Tablet) 50 mcg BC Q4H LON Last Admin: 02/17/21 20:18 Dose: 50 mcg Documented by: Nifedipine (Nifedipine 10 Mg Capsule) 10 - 20 mg PO Q20M PRN; Protocol PRN Reason: SBP >160 or DBP >110 Ondansetron HCl (Ondansetron 4 Mg/2 Ml Vial) 4 mg IVP Q4H PRN PRN Reason: Nausea / Vomiting Last Admin: 02/18/21 09:26 Dose: 4 mg Documented by: Oxytocin (Oxytocin 10 Unit/Ml Vial) 10 unit IM .ONCE PRN PRN Reason: Step one: If no IV access Stop: 02/22/21 14:47 Sodium Chloride (Sodium Chloride Flush 0.9% 10 Ml Syringe) 10 ml IVP 0100,0900,1700 LON Sodium Chloride (Sodium Chloride Flush 0.9% 10 Ml Syringe) 10 ml IVP PRN PRN PRN Reason: NEEDED PER PROVIDER ORDERS Last Admin: 02/18/21 05:47 Dose: 10 ml Documented by: Terbutaline Sulfate (Terbutaline 1 Mg/Ml Vial) 0.25 mg SUBQ Q1H PRN PRN Reason: PER PHYSICIAN ORDER Allergies/Adverse Reactions: Allergies Allergy/AdvReac Type Severity Reaction Status Date / Time No Known Drug Allergies Allergy Verified 02/02/21 13:12 Anes History & Medical History - Anesthetic History Anesthesia Complications: reports: No previous complications Family history of Anesthesia Complications: Denies Family history of Malignant Hyperthermia: Denies - Medical History Cardiovascular: reports: None Pulmonary: reports: None Gastrointestinal: reports: None Urinary: reports: None Neuro: reports: None Musculoskeletal: reports: None Smoking Status: Never smoker - Obstetrical History : 1 Parity: 0 Events: reports: None Exam General: Alert, Oriented x3, Cooperative Dental: WNL Mouth Openin Fingerbreadth Neck Mobility: Normal Mallampati classification: III Thyromental Distance: less than 4 cm Respiratory: Lungs clear Cardiovascular: Regular rate Plan Anesthesia Type: Epidural Consent for Procedure(s) Verified and Reviewed: Yes Code Status: Attempt Resuscitation ASA classification: 2-Mild systemic disease Is this case an emergency?: No
--- NOTE | 2021-02-18 23:53 | ANESTHESIA PROCEDURE NOTE ---
Anesthesia Epidural Template - Patient Report Patient Reports: positive: Pain controlled - Plan Plan: positive: Continue current management
[2021-02-19] MEDS ORDERED: fentaNYL 100 MCG/2 ML VIAL ONE ×2 (00:05→02:40)
[2021-02-19] MEDS ORDERED: LIDOCAINE-PF 2% 10 ML AMP SUBQ ONE (00:57)
[2021-02-19] MEDS ORDERED: ceFAZolin 2 GM in SODIUM CHLORIDE 0.9% 100ML 100 ML IV ONE (02:14)
--- NOTE | 2021-02-19 02:14 | PROVIDER PROGRESS NOTE ---
Labor Progress Note - Uterine Monitoring Uterine Monitoring Mode: positive: External toco Contraction Intensity: positive: Strong Uterine Resting Tone: positive: Soft - Monitoring Monitor Mode: positive: External ultrasound Heart Rate Baseline: 140 Heart Rate Variability: positive: Moderate (6-25 bmp) Accelerations: positive: Present, 15x15 Decelerations: positive: None Strip Review: positive: Category I - Vaginal Exam Dilation (in cm): 6 Effacement (%): 100 Station: -3 Cervical Position: Midposition - Labor Progress Note Labor Progress Note/Additional Text: Rechecked patient and she continues to be 6 cm dilated with no further descent in the pelvis. Tried again to perform amniotomy, but head is still ballotable. When patient was reclined to perform amniotomy, head was no longer palpable so ultrasound was used to assess position. Fetus remained cephalic, but has had was not palpable in the pelvis, discussed section and risks and benefits of section for failure to progress. section was recommended. Risks, benefits and alternatives were discussed including but not limited to infection, bleeding that may require blood products or hysterectomy for life saving measures, injury to surrounding organs including but not limited to bowel, bladder, ureters, tubes and ovaries and/or the baby. Should injury occur it could require longer/additional surgery to repair. The patient stated understanding and desired to proceed. All questions were answered posed by patient.
[2021-02-19] MEDS: LACTATED RINGERS 1,000 ML IV SCH (02:20)
[2021-02-19] MEDS ORDERED: CITRIC ACID/SODIUM CITRATE 15 ML UDC PO ONE (02:20)
[2021-02-19] MEDS ORDERED: ceFAZolin 1 GM VIAL ONE (02:29)
[2021-02-19] MEDS ORDERED: AZITHROMYCIN INJ 500 MG in SODIUM CHLORIDE 0.9% 250 ML IV SCH (03:00)
--- NOTE | 2021-02-19 04:38 | OPERATIVE REPORT ---
Operative Report - General Admit Date: 02/18/21 Planned Procedure: Section Pre-Op Diagnosis: Failure to progress, 41 weeks gestation Procedure Performed: section Post Op Diagnosis: Failure to progress, 41w gestation, s/p primary low transverse - Procedure Note Primary Surgeon: Peter Nascimento MD Secondary Surgeon: ASMITA Myers Anesthesia Provider: Yanelis Morales CRNA Anesthesia Technique: Spinal Pathology: None IV Fluids (mL): 2,000 Estimated Blood Loss (mL): 1,000 Urine Output (mL): 75 - Other Other Information/Narrative: Patient was an induction of labor that started at 40 weeks 6 days gestation who receives misoprostol for cervical ripening. Due to frequent contractions, she cannot receive it additional dose overnight, so she had a cervical ripening balloon placed the next day and oxytocin was started a short time later. She progressed to 6 cm, but remain unchanged for 6 hours. We discussed section, and patient wanted to wait 2 more hours. At that point she was still unchanged and head was not engaged in the pelvis, so amniotomy was unsafe to perform. At that point, section was recommended. Risks, benefits and alternatives were discussed including but not limited to infection, bleeding that may require blood products or hysterectomy for life saving measures, injury to surrounding organs including but not limited to bowel, bladder, ureters, tubes and ovaries and/or the baby. Should injury occur it could require longer/additional surgery to repair. The patient stated understanding and desired to proceed. All questions were answered posed by patient. Prior to being taken to the OR, two grams of cefazolin IV and 500 mg of azithromycin were administered. The patient was taken to the operating room and a spinal was placed with adequate coverage as her existing epidural was not providing pain relief. She was then prepared and draped in the usual sterile fashion in the dorsal supine position with a leftward tilt displacing the uterus. Manning was draining to gravity. SCDs were on bilateral lower extremities. A pfannenstiel skin incision was then made with the scalpel and carried through to the underlying layer of fascia. The fascia was incised in the midline and the incision extended laterally with the Davidson scissors. The superior aspect of the facial incision was then grasped with the Ryne clamps, elevated and the underlying rectus muscles dissected off sharply. Attention was then turned to the inferior aspect of this incision which in a similar fashion was grasped, elevated with the Ryne clamps and the rectus muscle dissected off sharply. The rectus muscles were in the midline. The peritoneum identified, grasped with the pick-ups and entered sharply with the Metzenbaum scissors. The peritoneal incision was then extended superiorly and inferiorly with good visualization of the bladder. The bladder blade was inserted. The vesicouterine peritoneum was identified, grasped with the pick-ups, and entered sharply with Metzenbaum scissors. This incision was then extended laterally and the bladder flap created digitally. The bladder blade was reinserted. The lower uterine segment was identified and incised in a transverse fashion with the scalpel. The uterine incision was then extended bluntly laterally. Artificial rupture of membranes demonstrated copious amount of thick meconium stained fluid with particulate. The bladder blade was removed. The fetus was in a cephalic presentation. The infants head delivered atraumatically. The a nterior shoulders were delivered followed by the posterior shoulders then the remainder of the body. The infants mouth and nose were bulb suctioned. After approximately 30 seconds umbilical cord was clamped times two and cut. The was taken to the pediatric attending for resuscitation. of 1 at 1 minute and 9 at 5 minutes. did receive approximately 30 seconds of PPV. Cord blood gases were obtained. The placenta was removed with gentle traction. 30 units of oxytocin were added to IVF and allowed to run freely. The uterus was exteriorized and cleared of all clots and debris. The uterine incision was inspected and found to be without any extensions and was repaired with 0 Vicryl in a running, locked fashion. A second imbricating layer was performed. Upon inspection, the repaired hysterotomy was found to be hemostatic. The uterus was firm and returned to the abdomen. The gutters were cleared of all clots and debris. The peritoneum was closed with a running stitch of 2-0 Vicryl. The muscles were reapproximated with 2-0 Vicryl. The fascia was reapproximated with 0 Vicryl in a running fashion. The subcutaneous tissue was closed with 2-0 Vicryl. The skin was closed in a subcuticular fashion with 3-0 Vicryl. The patient tolerated the procedure well. Sponge, lap and needle counts were correct times three. The patient was taken to the recovery room in stable condition.
[2021-02-19] MEDS ORDERED: OXYTOCIN/SODIUM CHLORIDE 500 ML IV PRN (04:42)
[2021-02-19] MEDS ORDERED: ONDANSETRON ODT 4 MG TABLET TL PRN (04:42)
[2021-02-19] MEDS ORDERED: SODIUM CHLORIDE FLUSH 0.9% 10 ML SYRINGE IVP PRN (04:42)
[2021-02-19] MEDS ORDERED: LACTATED RINGERS 1,000 ML IV ONE ×2 (04:43→04:44)
[2021-02-19] MEDS ORDERED: NALOXONE 0.4 MG/ML VIAL IVP PRN (04:50)
[2021-02-19] MEDS ORDERED: ePHEDrine 50 MG/ML VIAL IVP PRN (04:50)
[2021-02-19] MEDS ORDERED: fentaNYL 100 MCG/2 ML VIAL IVP PRN (04:50)
[2021-02-19] MEDS ORDERED: ATROPINE ABBOJECT 1 MG/10 ML SYRINGE IVP PRN (04:50)
[2021-02-19] MEDS ORDERED: HYDROmorphone 0.5 MG/0.5 ML SYRINGE IVP PRN (04:50)
[2021-02-19] MEDS ORDERED: MORPHINE 2 MG/ML CARPUJECT IVP PRN (04:50)
[2021-02-19] MEDS ORDERED: METOCLOPRAMIDE 10 MG/2 ML VIAL IVP PRN (04:50)
[2021-02-19] MEDS ORDERED: ONDANSETRON 4 MG/2 ML VIAL IVP PRN (04:50)
--- NOTE | 2021-02-19 04:50 | ANESTHESIA POST OP EVALUATION ---
Anesthesia Post Eval - Post Anesthesia Eval Vitals: Last Vital Signs Temp 36.8 C 02/19/21 02:18 Pulse 62 02/19/21 02:18 Resp 18 02/19/21 02:18 BP 110/57 L 02/19/21 02:18 Pulse Ox 98 02/19/21 02:18 CV Function Including HR & BP: Stable Pain Control: Satisfactory Nausea & Vomiting: Negative Mental Status: Baseline Respiratory Status: Airway Patent Hydration Status: Satisfactory Anesthesia Complications: None
[2021-02-19] MEDS ORDERED: LACTATED RINGERS 1,000 ML IV SCH ×2 (05:00)
[2021-02-19] MEDS: ACETAMINOPHEN 500 MG TABLET PO SCH ×2 (06:33→17:05)
[2021-02-19 08:07] LABS: BASOPHILS % (AUTO) 0.4 %; EOSINOPHILS # (AUTO) 0.1 10^3/uL (0.0-0.7); EOSINOPHILS % (AUTO) 0.8 %; HCT - HEMATOCRIT 28.7 % (37.0-47.0); HGB - HEMOGLOBIN 9.3 g/dL (12.0-16.0); LYMPHOCYTES # (AUTO) 2.2 10^3/uL (1.5-3.5); LYMPHOCYTES % (AUTO) 19.5 %; MEAN CORPUSCULAR HEMOGLOBIN 28.2 pg (27.0-31.0); MEAN CORPUSCULAR HGB CONC 32.4 g/dL (32.0-36.0); MEAN PLATELET VOLUME 10.3 fL (7.9-10.8); MONOCYTES # (AUTO) 1.3 10^3/uL (0.0-1.0); MONOCYTES % (AUTO) 11.6 %; NEUTROPHILS # (AUTO) 7.6 10^3/uL (1.5-6.6); NEUTROPHILS % (AUTO) 66.6 %; PLT - PLATELET COUNT 136 10^3/uL (130-450); RED CELL DISTRIBUTION WIDTH 23.2 % (12.0-15.0); WHITE BLOOD COUNT 11.4 x10^3/uL (4.8-10.8)
[2021-02-19 08:31] LABS: PLATELET ESTIMATE, MANUAL NORMAL (130-450,000) (NORMAL); PLATELET MORPHOLOGY NORMAL APPEARANCE (NORMAL); RBC MORPHOLOGY (MULTIPLE) 2+ ANISOCYTOSIS (NORMAL); SLIDE REVIEW? Indicated
[2021-02-19] MEDS: DOCUSATE SODIUM 100 MG CAPSULE PO SCH ×2 (08:59→21:07)
[2021-02-19] MEDS ORDERED: SODIUM CHLORIDE FLUSH 0.9% 10 ML SYRINGE IVP SCH (09:00)
[2021-02-19] MEDS: oxyCODONE 5 MG TABLET PO PRN ×4 (09:02→21:10)
[2021-02-19] MEDS: cephALEXin 250 MG CAPSULE PO SCH (11:17)
[2021-02-19] MEDS: metroNIDAZOLE 250 MG TABLET PO SCH ×2 (11:17→17:05)
[2021-02-19] MEDS: KETOROLAC 30 MG/ML VIAL IVP SCH ×3 (11:17→23:48)
--- NOTE | 2021-02-19 12:35 | PROVIDER PROGRESS NOTE ---
Subjective - Prog Note Date Prog Note Date: 02/19/21 Prog Note Time: 12:32 - Subjective Subjective: Patient is doing well. Has not yet been out of bed, as expected given recency of surgery. Pain moderately well managed. Was just given medication prior to his exam. Manning in place. Working on . Tolerating po. Objective - Vital Signs/Intake & Output Reviewed Vital Signs: Yes Vital Signs: Vital Signs x48h Temp Pulse Pulse Resp BP BP Pulse Ox 02/19/21 08:30 98.6 F 102 H 15 118/62 98 02/19/21 07:50 15 02/19/21 06:28 98.8 F 96 14 121/64 96 02/19/21 06:13 100 16 126/67 99 02/19/21 05:58 16 124/67 02/19/21 05:28 100 16 126/67 99 02/19/21 05:13 98.3 F 110 H 15 132/68 H 98 02/19/21 05:04 98.6 F 106 H 18 117/68 99 02/19/21 04:55 99.0 F 116 H 20 120/71 99 02/19/21 04:50 99.0 F 112 H 19 121/73 100 02/19/21 04:45 99.0 F 111 H 20 104/78 99 02/19/21 04:40 99.0 F 90 20 135/64 H 98 Intake & Output: Intake & Output 02/16/21 02/17/21 02/18/21 02/19/21 23:59 23:59 23:59 23:59 Intake Total 650 2135 671.667 Output Total 200 725 Balance 650 1935 -53.333 - Objective General Appearance: positive: No acute distress Neck: positive: Nml inspection Respiratory: positive: No respiratory distress Cardiovascular: positive: Other (RR) Abdomen: positive: Other (soft and appropriately tender. FF belwo umbi. Dressing CDI) Skin: positive: Color nml Extremities: positive: Non-tender, Other (SCDs in place) Neurologic/Psychiatric: positive: Oriented x3 - Lab Results Fish Bones: 02/19/21 06:50 Other Labs: Lab Results x24hrs 02/19/21 Range/Units 06:50 WBC 11.4 H (4.8-10.8) x10^3/uL RBC 3.30 L (4.20-5.40) 10^6/uL Hgb 9.3 L (12.0-16.0) g/dL Hct 28.7 L (37.0-47.0) % MCV 87.0 (81.0-99.0) fL MCH 28.2 (27.0-31.0) pg MCHC 32.4 (32.0-36.0) g/dL RDW 23.2 H (12.0-15.0) % Plt Count 136 (130-450) 10^3/uL MPV 10.3 (7.9-10.8) fL Neut # (Auto) 7.6 H (1.5-6.6) 10^3/uL Lymph # (Auto) 2.2 (1.5-3.5) 10^3/uL Gregg # (Auto) 1.3 H (0.0-1.0) 10^3/uL Eos # (Auto) 0.1 (0.0-0.7) 10^3/uL Baso # (Auto) 0.0 (0.0-0.1) 10^3/uL Absolute Nucleated RBC 0.00 x10^3/uL Nucleated RBC % 0.0 /100WBC Manual Slide Review Indicated Platelet Estimate NORMAL (130-450,000) (NORMAL) Platelet Morphology NORMAL APPEARANCE (NORMAL) RBC Morph Micro Appear 2+ ANISOCYTOSIS (NORMAL) Assessment/Plan - Problem List (1) deliv NOS-unsp Impression: POD#0 s/p primary LTCS for failure to progress Routine post op care Patient has not yet been OOB given recency of surgery Encourage ambulation in appropriate post op time frame cont inpatient care
--- NOTE | 2021-02-19 12:38 | Discharge Plan ---
Discharge Plan Problem Reviewed?: Yes Disposition: Home, Self Care Condition: Good Prescriptions: Acetaminophen [Acetaminophen Extra Strength] 1,000 mg PO Q8H PRN #60 tablet PRN Reason: Pain Acetaminophen [Acetaminophen Extra Strength] 1,000 mg PO Q8H PRN #60 tablet PRN Reason: Pain Docusate Sodium 100Mg Capsule [Colace 100Mg Capsule] 100 - 200 mg PO BID PRN #60 cap PRN Reason: Constipation Docusate Sodium 100Mg Capsule [Colace 100Mg Capsule] 100 - 200 mg PO BID PRN #60 cap PRN Reason: Constipation Ibuprofen [Motrin] 600 mg PO Q6H PRN #60 tab PRN Reason: Pain Ibuprofen [Motrin] 600 mg PO Q6H PRN #60 tab PRN Reason: Pain oxyCODONE [Roxicodone] 2.5 - 5 mg PO Q4H PRN #24 tablet PRN Reason: Severe Pain oxyCODONE [Roxicodone] 2.5 - 5 mg PO Q4H PRN #24 tablet PRN Reason: Severe Pain Diet: Regular Activity Restrictions: Additional Comments (see below) Shower Restrictions: Yes (see below) Driving Restrictions: Yes (see below) Health Concerns: Nothing in the vagina for 6 weeks: No intercourse, tampons, douching Call for: -Fever greater than 100.5 -Pain that does not improve with pain medication -Heavy bleeding in which you are soaking a pad an hour for 2 hours in a row -Incision becomes hot, hard, red, starts to open, or leaks foul smelling fluid -Pain or swelling in one leg and not the other +/- shortness of breath or chest pain LIFTING : No lifting more than 10# for 4 weeks DRIVING: No driving while on narcotics BATHING: Ok to shower. Let water run over the incision. Do not soap, scrub, or apply lotion. Pat dry with a clean towel or use a hair sample matcher. The surgical stickers will start to peel off and you can remove them when they do. Otherwise, the provider will remove them at your one week follow-up appointment. OK to use an unscented sanitary napkin or clean washcloth to keep the incision dry if the belly folds over the incision. Plan of Treatment: Ibuprofen 600 mg by mouth every 6 hours as needed for pain Acetaminophen 500-1000 mg by mouth every 8 hours as needed for pain Docusate 100-200 mg by mouth twice a day as needed for constipation Oxycodone 2.5-5 mg by mouth every 4 hours as needed for pain No Smoking: If you smoke, Please STOP! Call for help. Follow-up with: India Jones MD [Provider Admit Priv/Credential] -
[2021-02-19] MEDS: SERTRALINE 50 MG TABLET PO SCH ×2 (19:00→19:04)
[2021-02-19] MEDS: SIMETHICONE CHEW 80 MG TABLET PO PRN (21:06)
[2021-02-20] MEDS: metroNIDAZOLE 250 MG TABLET PO SCH ×3 (01:55→16:46)
[2021-02-20] MEDS: cephALEXin 250 MG CAPSULE PO SCH ×3 (01:55→16:46)
[2021-02-20] MEDS: IBUPROFEN 600 MG TABLET PO SCH ×3 (04:30→16:45)
[2021-02-20] MEDS: oxyCODONE 5 MG TABLET PO PRN ×2 (04:31→20:11)
[2021-02-20] MEDS: SIMETHICONE CHEW 80 MG TABLET PO PRN ×2 (09:00→16:46)
[2021-02-20] MEDS: ACETAMINOPHEN 500 MG TABLET PO SCH ×2 (09:00→16:45)
[2021-02-20] MEDS: DOCUSATE SODIUM 100 MG CAPSULE PO SCH (09:00)
--- NOTE | 2021-02-20 10:28 | PROVIDER PROGRESS NOTE ---
Progress Note Subjective Patient reports she is doing well. Lochia appropriate. Denies heavy bleeding. Ambulating, although minimally. Pelvic and abdominal pain well-controlled. Tolerating oral intake. Diet: Regular. Voiding without difficulty. Denies passing flatus or BM. Patient is bonding with baby in room Breast feeding going well. Denies feeling lightheaded, dizzy or excessively fatigued. Objective Temp Pulse Resp BP Pulse Ox 98.7 F 89 18 133/79 H 98 02/20/21 08:00 02/20/21 08:00 02/20/21 08:00 02/20/21 08:00 02/20/21 08:00 General: Alert, oriented, no apparent distress. Cardiovascular: Regular rate. Regular rhythm. No murmur. Lungs: Clear to auscultation. Good air movement. No crackles or wheezes Abdomen: Uterus firm. Below umbilicus. Normal active bowel sounds. No guarding or rebound. Incision: Bandage in place. Extremities: Normal pedal pulses. No edema. No cords. Preop hemoglobin 12.9 Postop hemoglobin 9.3 Assessment and Plan day 1. -Routine care -Anticipate discharge possibly tomorrow. Will reassess in the morning. -Encouraged increased ambulation today as has been minimal.
[2021-02-21] MEDS: SIMETHICONE CHEW 80 MG TABLET PO PRN (00:25)
[2021-02-21] MEDS: DOCUSATE SODIUM 100 MG CAPSULE PO SCH ×2 (00:25→09:25)
[2021-02-21] MEDS: cephALEXin 250 MG CAPSULE PO SCH ×2 (00:25→08:35)
[2021-02-21] MEDS: ACETAMINOPHEN 325 MG TABLET PO SCH ×2 (00:26→06:08)
[2021-02-21] MEDS: oxyCODONE 5 MG TABLET PO PRN ×2 (00:26→06:09)
[2021-02-21] MEDS: metroNIDAZOLE 250 MG TABLET PO SCH ×2 (00:26→08:35)
[2021-02-21] MEDS: IBUPROFEN 600 MG TABLET PO SCH ×2 (00:26→06:09)
[2021-02-21 09:32] VITALS: BP 120/72
--- NOTE | 2021-02-21 10:36 | DISCHARGE SUMMARY ---
Discharge Summary Admit Date: 02/19/21 Discharge Date: 02/21/21 Discharging Provider: Peter Nascimento MD Code Status: Attempt Resuscitation Condition at Discharge: Good Discharge Disposition: 01 Home, Self Care - DIAGNOSES Admission Diagnoses: 40 weeks gestation Induction of labor Discharge Diagnoses with Status of Each Condition: Failure to progress Status post primary low transverse section - HPI History of Present Illness: Subjective Patient reports she is doing well. Lochia appropriate. Denies heavy bleeding. Ambulating. Pelvic and abdominal pain well-controlled. Tolerating oral intake. Diet: Regular. Voiding without difficulty. Passing flatus. Denies BM. Patient is bonding with baby in room Breast feeding going well. Denies feeling lightheaded, dizzy or excessively fatigued. Objective Temp Pulse Resp BP Pulse Ox 98.4 F 76 16 120/72 99 02/21/21 09:00 02/21/21 09:00 02/21/21 09:00 02/21/21 09:00 02/21/21 09:00 General: Alert, oriented, no apparent distress. Cardiovascular: Regular rate. Regular rhythm. No murmur. Lungs: Clear to auscultation. Good air movement. No crackles or wheezes Abdomen: Uterus firm. Below umbilicus. Normal active bowel sounds. No guarding or rebound. Extremities: Normal pedal pulses. No edema. No cords. - HOSPITAL COURSE Hospital Course: Patient is a 25-year-old G1, P1 admitted at 40 weeks 6 days gestation for induction of labor. She was admitted overnight had slow progress, but got a cervical ripening balloon that came out spontaneously came out after several hours with the addition of oxytocin. She never progressed past 6 cm despite 8 hours of oxytocin. Decision was made to proceed with primary low transverse section. section was uncomplicated other than copious amount of thick meconium at time of delivery. course was uneventful and she was discharged on day 2. was discharged at the same time. - ALLERGIES Allergies/Adverse Reactions: Allergies Allergy/AdvReac Type Severity Reaction Status Date / Time No Known Drug Allergies Allergy Verified 02/02/21 13:12 - MEDICATIONS Home Medications: Ambulatory Orders Medication Instructions Recorded Confirmed Acetaminophen [Acetaminophen Extra 1,000 mg PO Q8H PRN #60 tablet 02/19/21 Strength] Docusate Sodium 100Mg Capsule 100 - 200 mg PO BID PRN #60 cap 02/19/21 [Colace 100Mg Capsule] Ibuprofen [Motrin] 600 mg PO Q6H PRN #60 tab 02/19/21 oxyCODONE [Roxicodone] 2.5 - 5 mg PO Q4H PRN #24 tablet 02/19/21 - LABS Result Diagrams: 02/19/21 06:50 - FOLLOW UP Follow Up: One week with Peter Nascimento MD for incision check. - TIME SPENT Time Spent in Discharge (Minutes): 20
== END 2021-02-21 13:55 | disposition home or self-care (01) | DRG 788 ==
LOC: WFO 14:16 → FBP 14:18 → WFO 14:42 → FBP 14:44 → OBSVTOIN 02-18 13:08 → FBP 02-19 04:03
PROVIDERS: ADMIT Obstetrics & Gynecology; ATTEND Obstetrics & Gynecology
PROC: 3E0DXGC Introduction of Other Therapeutic Substance into Mouth and Pharynx, External Approach (ICD-10-PCS; 2021-02-18)
PROC: 0U7C7ZZ Dilation of Cervix, Via Natural or Artificial Opening (ICD-10-PCS; 2021-02-18)
PROC: 10D00Z1 Extraction of Products of Conception, Low, Open Approach (ICD-10-PCS; principal; 2021-02-19 02:45)
DX: O48.0 Post-term pregnancy (principal); Z37.0 Single live birth; O62.0 Primary inadequate contractions; O77.0 Labor and delivery complicated by meconium in amniotic fluid; Z3A.40 40 weeks gestation of pregnancy
CPT/HCPCS: 36415; 85025; 86850; 86900; 86901; 96374; 96375; 96376; A9270; G0378; J7120

== ENCOUNTER 2021-02-25 12:00 | Outpatient (CLI) | payer MEDICAID ==
[2021-02-25 12:28] LABS: HCT - HEMATOCRIT 35.7 % (37.0-47.0); HGB - HEMOGLOBIN 11.4 g/dL (12.0-16.0); MEAN CORPUSCULAR HEMOGLOBIN 27.7 pg (27.0-31.0); MEAN CORPUSCULAR HGB CONC 31.9 g/dL (32.0-36.0); MEAN CORPUSCULAR VOLUME 86.9 fL (81.0-99.0); MEAN PLATELET VOLUME 8.7 fL (7.9-10.8); RED BLOOD COUNT 4.11 10^6/uL (4.20-5.40); RED CELL DISTRIBUTION WIDTH 21.4 % (12.0-15.0); WHITE BLOOD COUNT 7.1 x10^3/uL (4.8-10.8)
[2021-02-25 12:56] LABS: ALBUMIN 3.2 g/dL (3.2-5.5); ALBUMIN/GLOBULIN RATIO 0.8 (1.0-2.2); BILIRUBIN,TOTAL 0.5 mg/dL (0.2-1.0); CREATININE 0.7 mg/dL (0.4-1.0); POTASSIUM 4.3 mmol/L (3.5-5.0); TOTAL PROTEIN 7.1 g/dL (6.7-8.2)
== END 2021-02-25 12:01 | disposition home or self-care (01) ==
LOC: LAB 12:00
PROVIDERS: ATTEND Obstetrics & Gynecology
DX: Z39.1 Encounter for care and examination of lactating mother (principal); R03.0 Elevated blood-pressure reading, without diagnosis of hypertension
CPT/HCPCS: 36415; 80053; 85027